=== PATIENT | male | born 1975 | race Caucasian/White ===

== ENCOUNTER 2022-01-07 11:47 | Emergency (ER) | payer MEDICAID ==
[~2022-01-07] VITALS: Ht 177.8 cm; Wt 111.4 kg
[2022-01-07] MEDS ORDERED: ondansetron 4mg rapidly disintigrating tab PO ONE (13:35)
[2022-01-07] MEDS ORDERED: sulfamethoxazole/trimethoprim DS (800/160mg) tablet PO ONE (13:35)
[2022-01-07] MEDS ORDERED: SULF1TAB49 PO (13:58)
[2022-01-07 14:31] VITALS: BP 104/65
== END 2022-01-07 14:35 | disposition home or self-care (01) ==
LOC: ER 11:48
DX: L03.116 Cellulitis of left lower limb (principal); M79.605 Pain in left leg; Z79.2 Long term (current) use of antibiotics
CPT/HCPCS: 93971; 99284

== ENCOUNTER 2022-03-31 13:13 | Emergency (ER) | payer MEDICAID ==
[~2022-03-31] VITALS: Ht 180.3 cm; Wt 113.6 kg
[2022-03-31 13:49] LABS: BASOPHILS # (AUTO) 0.1 X10'3 (0-0.2); BASOPHILS % (AUTO) 1.2 % (0-1); EOSINOPHILS # (AUTO) 0.1 X10'3 (0-0.9); EOSINOPHILS % (AUTO) 2.1 % (0-6); HEMATOCRIT 45.7 % (42.0-52.0); HEMOGLOBIN 15.2 g/dl (14.0-17.9); LYMPHOCYTES # (AUTO) 2.1 X10'3 (1.1-4.8); LYMPHOCYTES % (AUTO) 31.6 % (21-51); MEAN CORPUSCULAR HEMOGLOBIN 29.7 PG (27.0-31.0); MEAN CORPUSCULAR HGB CONC 33.3 g/dL (33.0-36.5); MEAN CORPUSCULAR VOLUME 89.1 FL (78-98); MEAN PLATELET VOLUME 9.5 FL (7.4-10.4); MONOCYTES # (AUTO) 0.7 X10'3 (0-0.9); MONOCYTES % (AUTO) 10.7 % (2-12); NEUTROPHILS # (AUTO) 3.7 X10'3 (1.8-7.7); NEUTROPHILS % (AUTO) 54.4 % (42-75); PLATELET COUNT 196 X10'3 (140-440); RED BLOOD COUNT 5.13 X10'6 (4.70-6.10); RED CELL DISTRIBUTION WIDTH 13.9 % (11.5-14.5); WHITE BLOOD COUNT 6.7 X10'3 (4.5-11.0)
[2022-03-31] MEDS ORDERED: normal saline 1000ML IV soln IVB ONE (14:00)
[2022-03-31 14:04] LABS: ALANINE AMINOTRANSFERASE 43 U/L (12-78); ALBUMIN 3.8 G/DL (3.4-5.0); ALKALINE PHOSPHATASE 101 IU/L (46-116); ANION GAP 9 (8-16); ASPARTATE AMINO TRANSFERASE 23 U/L (10-37); BILIRUBIN,TOTAL 0.2 MG/DL (0.1-1.0); BLOOD UREA NITROGEN 19 MG/DL (7-18); CALCIUM 8.4 MG/DL (8.5-10.1); CHLORIDE 102 MMOL/L (99-107); CREATININE 1.72 MG/DL (0.60-1.10); GLUCOSE 241 MG/DL (70-104); POTASSIUM 4.7 MMOL/L (3.5-5.1); SODIUM 138 MMOL/L (135-145); TOTAL CARBON DIOXIDE 27.1 MMOL/L (24-32); TOTAL PROTEIN 7.5 G/DL (6.4-8.2); eGFR 43 ML/MIN
[2022-03-31] MEDS ORDERED: BEBTELOVIMAB 175 MG/2 ML VIAL IV ONE (14:35)
[2022-03-31 15:36] VITALS: BP 107/55
== END 2022-03-31 16:17 | disposition home or self-care (01) ==
LOC: ER 13:13
DX: U07.1 COVID-19 (principal); J02.9 Acute pharyngitis, unspecified; I10 Essential (primary) hypertension; E86.0 Dehydration; R42 Dizziness and giddiness; E11.9 Type 2 diabetes mellitus without complications
CPT/HCPCS: 36415; 80053; 83880; 84145; 84484; 85025; 96360; 96361; 99284; J7030; M0222; Q0222

== ENCOUNTER 2022-05-09 13:54 | Emergency (ER) | payer MEDICAID ==
[~2022-05-09] VITALS: Ht 175.3 cm; Wt 113.6 kg
[2022-05-09 13:58] VITALS: BP 123/82
== END 2022-05-09 16:08 | disposition home or self-care (01) ==
LOC: ER 13:54
DX: S90.32XA Contusion of left foot, initial encounter (principal); I10 Essential (primary) hypertension; E11.9 Type 2 diabetes mellitus without complications; Z72.89 Other problems related to lifestyle; W17.89XA Other fall from one level to another, initial encounter; Y93.89 Activity, other specified; Y92.89 Other specified places as the place of occurrence of the external cause; Y99.8 Other external cause status
CPT/HCPCS: 29515; 73630; 99283; L4360

== ENCOUNTER 2022-12-19 18:42 | Emergency (ER) | payer MEDICAID ==
[~2022-12-19] VITALS: Ht 180.3 cm; Wt 95.0 kg
[2022-12-19 18:52] VITALS: BP 124/81
[2022-12-19] MEDS ORDERED: HYDR-3965 PO (19:19)
[2022-12-19] MEDS ORDERED: AMOX-117 PO (19:19)
== END 2022-12-19 19:24 | disposition home or self-care (01) ==
LOC: ER 18:42
DX: K04.7 Periapical abscess without sinus (principal); K08.89 Other specified disorders of teeth and supporting structures; I10 Essential (primary) hypertension; E11.9 Type 2 diabetes mellitus without complications
CPT/HCPCS: 99283

== ENCOUNTER 2024-07-01 15:32 | Emergency (ER) | payer MEDICAID ==
[~2024-07-01] VITALS: Ht 175.3 cm; Wt 95.8 kg
[2024-07-01] MEDS ORDERED: CLIN-97 PO (15:38)
[2024-07-01] MEDS ORDERED: IBUP-862 PO (15:38)
[2024-07-01 15:45] VITALS: BP 128/83; PULSE 106; RESP 16; TEMP 98; O2SAT 95
== END 2024-07-01 15:46 | disposition home or self-care (01) ==
LOC: ER 15:33
DX: K04.7 Periapical abscess without sinus (principal); K08.89 Other specified disorders of teeth and supporting structures; I10 Essential (primary) hypertension; E11.9 Type 2 diabetes mellitus without complications
CPT/HCPCS: 99283

== ENCOUNTER 2025-04-20 13:57 | Emergency (ER) | payer MEDICAID ==
[~2025-04-20] VITALS: Ht 177.8 cm; Wt 74.9 kg
[~2025-04-20 13:57] MED LIST: CLIN-97 PO; IBUP-862 PO
[2025-04-20 13:58] VITALS: BP 101/67; PULSE 84; RESP 15; TEMP 97.1; O2SAT 100
[2025-04-20] MEDS ORDERED: KEN0.1O TOP (14:04)
--- NOTE | 2025-04-20 14:05 | Physician Documentation ---
History of Present Illness ~ Stated Complaint: POISON OAK Time Seen by MD: 13:59 Primary Medical Doctor: MONICA DOUGHERTY Source: patient Mode of Arrival: POV Exam Limitations: no limitations HPI 49-year-old male with poison oak on arms and trunk for 4 days. Using calamine but states it is still spreading and itching. Medication Reconciliation Allergies: Coded Allergies: No Known Allergies (Unverified , 01/07/22) Scheduled Clindamycin HCL* (Clindamycin HCL*), 1 CAP PO Q6H Ibuprofen (Ibu), 1 TAB PO Q6H Past Medical History Past Medical History: No Pertinent History, Hypertension, Diabetes Past Surgical History: noncontributory Alcohol Use: Other Drug Use: none Lives In: Home Review of Systems All Other Systems at this time: Reviewed and Negative Integumentary: Reports: see HPI Physical Exam Physical Exam General: Alert, no apparent distress. Respiratory: Lungs clear, no respiratory distress. Chest: No accessory muscle use. Cardiovascular: Regular rate and rhythm, no murmurs. Extremities: Normal range of motion, no deformity. See skin exam Neurologic: Oriented x4. Psychiatric: Normal mood and affect. Skin: Like papules to the legs arms and trunk with calamine on them some areas without calamine with erythema no discharge Medical Decision Making Findings Poison oak x4 days Kenalog shot provided and steroid cream ordered to follow up with primary care Departure Time of Disposition: 14:03 Disposition: 01 HOME / SELF CARE / HOMELESS Impression: Primary Impression: Poison oak dermatitis Condition: Stable Discharge Instructions: Poison [place] Dermatitis, [id number] Additional Instructions: Cream and calamine as needed for itching and comfort try not to scratch to reduce the risk of infection. You received a steroid shot to help reduce the length of time and potentially symptoms of your poison oak Referrals: NO PRIMARY CARE PROVIDER (PCP) Prescriptions Triamcinolone Acetonide 0.1% Crm* (Kenalog 0.1% Crm*) 1 Applic Tube 1 APPLIC TOP Q12H for 10 Days, #80 GM Prov: UYEN CASPER NP 04/20/25 Education Educated: Patient Educated regarding: diagnosis, treatment, need for follow up Signature Scribe Signature: No scribe Attestation: The note accurately reflects work and decisions made by me.Uyen [place] 04/20/25 14:05 UYEN CASPER NP Apr 20, 2025 14:05
[2025-04-20] MEDS: triamcinolone acetonide 40mg/ml inj IM ONE (14:18)
== END 2025-04-20 14:20 | disposition home or self-care (01) ==
LOC: ER 13:58
DX: L23.7 Allergic contact dermatitis due to plants, except food (principal); Z79.899 Other long term (current) drug therapy
CPT/HCPCS: 96372; 99283; J3301